=== PATIENT | male | born 1975 | race Caucasian/White ===

== ENCOUNTER 2019-01-24 12:57 | Emergency (ER) | payer OTHER ==
[2019-01-24 13:28] VITALS: BP 135/98
[2019-01-24] MEDS ORDERED: Tetan/Diph/Pertus SYR(Tdap)* 0.5 ML SYR(BOOSTRIX) use SYR IM ONE (13:52)
[2019-01-24] MEDS ORDERED: Lidocaine 1%* 5 ML VIAL INJ ONE (14:05)
--- NOTE | 2019-01-24 14:09 | UC ---
UC General HPI - HPI Summary HPI Summary: pt had a piece of broken glass come down on his L forearm causing a cut. it occurred at work just [employer]. he denies FB sensation and limited rom. last tetanus is not known. - History of Current Complaint Chief Complaint: UCLaceration Stated Complaint: WC-LEFT FOREARM LACERATION Time Seen by Provider: 01/24/19 14:00 Hx Obtained From: Patient Onset/Duration: Sudden Onset Timing: Constant Pain Intensity: 1 Associated Signs & Symptoms: Negative: Weakness - Allergy/Home Medications Allergies/Adverse Reactions: Allergies Allergy/AdvReac Type Severity Reaction Status Date / Time No Known Allergies Allergy Verified 01/24/19 13:28 Home Medications: Home Medications NK [No Home Medications Reported] 01/24/19 [History Confirmed 01/24/19] PMH/Surg Hx/FS Hx/Imm Hx Previously Healthy: Yes - Surgical History Surgical History: Yes Surgery Procedure, Year, and Place: 10/2014 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 - Family History Known Family History: Positive: Non-Contributory - Social History Occupation: Employed Full-time Lives: With Family Alcohol Use: Occasionally Substance Use Type: None Smoking Status (MU): Former Smoker Review of Systems All Other Systems Reviewed And Are Negative: No Constitutional: Negative: Fever Skin: Negative: Rash Musculoskeletal: Negative: Decreased ROM, Edema Neurological: Negative: Weakness, Paresthesia, Numbness Physical Exam Triage Information Reviewed: Yes Appearance: Well-Appearing Vital Signs: Initial Vital Signs Temp 98.4 F 01/24/19 13:22 Pulse 102 01/24/19 13:22 Resp 16 01/24/19 13:22 BP 135/98 01/24/19 13:22 Pulse Ox 99 01/24/19 13:22 Vital Signs Reviewed: Yes Respiratory: Positive: No respiratory distress Cardiovascular: Positive: RRR Musculoskeletal: Positive: Other: - LUE: dorsal forearm has a 4cm laceration. fat seen. no muscle, tendon or ligament injuries. no bony deformity or tenderness. forearm and gand have full s/v/m function up to point of injury. no active bleeding. Neurological: Positive: Alert Psychological: Positive: Age Appropriate Behavior Skin Exam: Normal Course/Dx - Course Course Of Treatment: NO HX HTN, BP VISIT RELATED. PROCEDURE: time out done. wound prep betadine. local with 2ml and 1% lidocaine. wound explored and no FB, MM, tendon or ligament injuries. irrigated with sterile NaCl. Draped. Closed with 5-0 nylon and 3 horizontal mattress and 1 simple stitch. only scant bleeding. sterile technique used. pt tolerated well. dressing applied by nursing. Wound length was 4cm. - Differential Dx - Multi-Symptom Differential Diagnoses: Other - no concern for infection, fx. - Diagnoses Provider Diagnosis: Laceration Discharge - Sign-Out/Discharge Documenting (check all that apply): Patient Departure All imaging exams completed and their final reports reviewed: No Studies - Discharge Plan Condition: Stable Disposition: HOME Patient Education Materials: Care For Your Stitches (DC) Referrals: No Primary Care Phys,NOPCP [Primary Care Provider] - Additional Instructions: RETURN TO THIS FACILITY IN 7-10 DAYS FOR SUTURE REMOVAL. RETURN SOONER FOR ANY CONCERNS. - Billing Disposition and Condition Condition: STABLE Disposition: Home
== END 2019-01-24 14:41 | disposition home or self-care (01) ==
LOC: UCCORT 12:57
DX: S51.812A Laceration without foreign body of left forearm, initial encounter (principal); Z23 Encounter for immunization; Z87.891 Personal history of nicotine dependence; W25.XXXA Contact with sharp glass, initial encounter; Y99.0 Civilian activity done for income or pay
CPT/HCPCS: 12002; 90471; 90715; 99201; G0463

== ENCOUNTER 2019-02-03 07:26 | Emergency (ER) | payer SELFPAY ==
[2019-02-03 07:38] VITALS: BP 127/81
--- NOTE | 2019-02-03 07:56 | UC ---
Skin Complaint HPI - HPI Summary HPI Summary: 44-year-old male comes in with a chief complaint of suture removal. Patient cut his left forearm on January 24, 2019 and had sutures placed here. It's healing up well there is no erythema there is no drainage. 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 - Family History Known Family History: Positive: Non-Contributory - Social History Alcohol Use: Occasionally Substance Use Type: None Smoking Status (MU): Former Smoker Review of Systems All Other Systems Reviewed And Are Negative: Yes Constitutional: Positive: Negative Skin: Positive: Other - SEE HPI Eyes: Positive: Negative ENT: Positive: Negative Respiratory: Positive: Negative Cardiovascular: Positive: Negative Gastrointestinal: Positive: Negative Motor: Positive: Negative Neurovascular: Positive: Negative Musculoskeletal: Positive: Negative Neurological: Positive: Negative Psychological: Positive: Negative Is Patient Immunocompromised?: No Physical Exam Triage Information Reviewed: Yes Appearance: Well-Appearing, No Pain Distress, Well-Nourished Vital Signs: Initial Vital Signs Temp 97.3 F 02/03/19 07:35 Pulse 84 02/03/19 07:35 Resp 16 02/03/19 07:35 BP 127/81 02/03/19 07:35 Pulse Ox 99 02/03/19 07:35 Vital Signs Reviewed: Yes Eye Exam: Normal Eyes: Positive: Conjunctiva Clear Neck: Positive: Supple Respiratory: Positive: No respiratory distress Musculoskeletal: Positive: Strength Intact, ROM Intact Neurological Exam: Normal Neurological: Positive: Alert, Muscle Tone Normal Psychological Exam: Normal Psychological: Positive: Age Appropriate Behavior Skin: Positive: Other - LEFT FOREARM HEALING, CLOSED 4CM LINEAR WOUND. NO ERYTHEMA, NO DRAINAGE. I REMOVED 3 MATTRESS AND ONE SIMPLE INTERRUPTED SUTURES. Course/Dx - Diagnoses Provider Diagnosis: Encounter for removal of sutures Discharge - Sign-Out/Discharge Documenting (check all that apply): Patient Departure All imaging exams completed and their final reports reviewed: No Studies - Discharge Plan Condition: Stable Disposition: HOME Patient Education Materials: Stitches Removal (ED) Referrals: [facility] [place] [facility] [Outside] Additional Instructions: FOLLOW UP WITH YOUR DOCTOR IF NOT COMPLETELY IMPROVED. GET RECHECKED SOONER IF YOUR CONDITION WORSENS OR ANY QUESTIONS OR CONCERNS. - Billing Disposition and Condition Condition: STABLE Disposition: Home
== END 2019-02-03 08:00 | disposition home or self-care (01) ==
LOC: UCCORT 07:26
DX: Z48.02 Encounter for removal of sutures (principal); Z87.891 Personal history of nicotine dependence
CPT/HCPCS: 99211; G0463